=== PATIENT | female | born 1945 | race Caucasian/White ===

== ENCOUNTER 2017-02-12 12:50 | Emergency (ER) | payer MEDICARE, OTHER ==
--- NOTE | 2017-02-12 12:55 | ED Physician Documentation ---
General Adult - HISTORIAN Historian: patient - HPI Stated Complaint: pain in rectal area and urinary frequency Chief Complaint: Female Urogenital Problems Onset: days ago (1) Timing: still present, better Severity: mild Modifying Factors: after supp of preperation H she felt improvement Quality: aching and burning in rectal area Location: rectal Further Comments: no Last known Well Date: 02/11/17 Last Known Well Time: 09:00 Last known Well Code/Unknown Code: Unknown - ROS CONST: denies: fever, recent illness EYES/ENT: none CVS/RESP: none GI/: problems urinating. denies: abdominal pain, vomiting, nausea, diarrhea MS/SKIN/LYMPH: none NEURO/PSYCH: headache - PAST HX Past History: other (history of "two memory loss events" ) Other History: none Surgeries/Procedures: other (right ovary removed ) - SOCIAL HX Smoking History: non-smoker Alcohol Use: none Drug Use: none - FAMILY HX Family History: No - REVIEWED ASSESSMENTS Nursing Assessment Reviewed: Yes Vitals Reviewed: Yes <Rajani Lebron - Last Filed: 02/12/17 13:32> - VITAL SIGNS Vital Signs: Vital Signs Temp Pulse Resp BP Pulse Ox 99.3 F 54 L 20 169/86 99 02/12/17 12:50 02/12/17 13:46 02/12/17 13:46 02/12/17 12:50 02/12/17 13:46 <Dillan Warren - Last Filed: 02/12/17 13:59> - PAST HX Allergies/Adverse Reactions: Allergies Allergy/AdvReac Type Severity Reaction Status Date / Time Sulfa (Sulfonamide Allergy Verified 02/12/17 13:02 Antibiotics) Home Medications: Ambulatory Orders Medication Instructions Recorded NK [NK] 02/12/17 ED Results Lab/Radiology - Orders Orders: ED Orders Category Date Time Status UA W/MICRO IF INDICATED Routine Lab 02/12/17 13:05 Ordered <Dillan Warren - Last Filed: 02/12/17 13:59> General Adult Physical Exam - PHYSICAL EXAM GENERAL APPEARANCE: no distress EENT: eye inspection normal NECK: normal inspection RESPIRATORY: no resp distress, chest non-tender, breath sounds normal CVS: reg rate & rhythm, heart sounds normal, equal pulses, no murmur ABDOMEN: soft, normal bowel sounds, other (no palpated bladder tenderness ). No : guarding RECTAL: normal exam. No: hemorrhoids BACK: normal inspection SKIN: warm/dry EXTREMITIES: non-tender NEURO: oriented X3, CN's nml as tested, motor nml, sensation nml <Rajani Lebron - Last Filed: 02/12/17 13:32> - PHYSICAL EXAM ABDOMEN: other <Dillan Warren - Last Filed: 02/12/17 13:59> Discharge Comments: Check b/p at home and see Dr Warren in one week Decision to Admit: NO Date of Decison to Admit: 02/12/17 Decision Time: 13:32 <Rajani Lebron - Last Filed: 02/12/17 13:32> <Dillan Warren - Last Filed: 02/12/17 13:59> Clincal Impression: Acute hemorrhoid Referrals: Dillan Warren MD [Primary Care Provider] - 2 Days Condition: Stable Disposition: 01 HOME, SELF-CARE
[2017-02-12 13:01] VITALS: BP 169/86
[2017-02-12 14:52] LABS: APPEARANCE,URINE CLEAR (CLEAR); COLOR,URINE YELLOW (YELLOW); OCCULT BLOOD,URINE NEGATIVE (NEGATIVE); UROBILINOGEN URINE 0.2 Eu (0.2-1.0)
== END 2017-02-12 13:46 | disposition home or self-care (01) ==
LOC: ED 12:50
DX: K64.9 Unspecified hemorrhoids (principal)
CPT/HCPCS: 81002; 99283

== ENCOUNTER 2017-02-15 08:14 | Outpatient (CLI) | payer OTHER ==
[2017-02-15 08:54] LABS: eGFR (African) > 60; eGFR (Non-African) > 60
== END 2017-02-15 08:15 ==
LOC: LAB 08:14
PROVIDERS: ATTEND Family Medicine
DX: R07.89 Other chest pain (principal); R53.83 Other fatigue
CPT/HCPCS: 36415; 80053; 80061; 84443

== ENCOUNTER 2017-07-03 19:05 | Emergency (ER) | payer OTHER ==
--- NOTE | 2017-07-03 19:18 | ED Physician Documentation ---
General Adult - HISTORIAN Historian: patient - HPI Stated Complaint: hypertension Chief Complaint: Chest Pain Onset: hours (5) Timing: still present Severity: moderate Further Comments: yes (she states she started with a dizzy feeling and then her b/p and she had this in the past and dr warren told her that her b/p was ok. She also had reflux since she had the flu earlier in the month. She has had weakness since then. She states at this time she has some tightness in her chest. She has not had any OTC meds for the symptoms . She has a mild headache.) - ROS CONST: no problems CVS/RESP: chest pain GI/: none MS/SKIN/LYMPH: none NEURO/PSYCH: headache, dizziness - PAST HX Past History: none Other History: none Surgeries/Procedures: none Immunizations: UTD Allergies/Adverse Reactions: Allergies Allergy/AdvReac Type Severity Reaction Status Date / Time Sulfa (Sulfonamide Allergy Verified 07/03/17 19:23 Antibiotics) Home Medications: Ambulatory Orders Medication Instructions Recorded NK [NK] 02/12/17 - SOCIAL HX Smoking History: non-smoker Alcohol Use: none Drug Use: none - FAMILY HX Family History: No - VITAL SIGNS Vital Signs: Vital Signs Temp Pulse Resp BP Pulse Ox 169/86 02/12/17 12:50 - REVIEWED ASSESSMENTS Nursing Assessment Reviewed: Yes Vitals Reviewed: Yes Progress - Progress Progress: 2020: pain is decreased. No dizziness. DG ED Results Lab/Radiology - Radiology Radiology Impressions: Chest, PA and lateral HISTORY Chest pain. FINDINGS No infiltrate, effusion or pneumothorax is present. Heart size, mediastinum and pulmonary vascularity are normal. IMPRESSION No active disease. Electronically signed on Jul 03, 2017 8:35:34 PM SECURITY COMPLIANCE SPECIALIST by: Willy Rivera General Adult Physical Exam - PHYSICAL EXAM GENERAL APPEARANCE: no distress EENT: eye inspection normal NECK: normal inspection RESPIRATORY: no resp distress, chest non-tender, breath sounds normal CVS: reg rate & rhythm, heart sounds normal, equal pulses, no murmur ABDOMEN: soft SKIN: warm/dry, normal color EXTREMITIES: non-tender, normal range of motion, no evidence of injury, no edema NEURO: oriented X3, CN's nml as tested, motor nml, sensation nml, mood/affect nml, cognition normal Discharge Clincal Impression: Chest pain Qualifiers: Chest pain type: unspecified Qualified Code(s): R07.9 - Chest pain, unspecified Referrals: Dillan Warren MD [Primary Care Provider] - 2 Days Comments: 1. increase fluids 2. rest 3. follow up with PCP in 2-3 days 4. Return to ER for any concerns. 5. Vistaril 25 mg BID as needed for anxiety Condition: Stable Disposition: 01 HOME, SELF-CARE Decision to Admit: NO Date of Decison to Admit: 07/03/17 Decision Time: 20:50
[2017-07-03] MEDS ORDERED: ASPIRIN 81 MG CHEW TAB PO ONE (19:26)
[2017-07-03 19:55] LABS: BASOPHILS % 0.8 (0.0-1.5); MEAN CORPUSCULAR HEMOGLOBIN 30.3 pg (28.0-34.0); MEAN CORPUSCULAR VOLUME 92.7 fl (80.0-100.0); MONOCYTES % 6.1 % (0.0-11.0); NEUTROPHILS # 2.7 # k/uL (1.4-7.7)
[2017-07-03 20:18] LABS: eGFR (African) > 60; eGFR (Non-African) > 60
[2017-07-03] MEDS ORDERED: HYDROXYZINE HCL 25 MG TABLET PO ONE (20:34)
[2017-07-03 21:07] VITALS: BP 134/56
--- NOTE | 2017-07-03 23:57 | Diagnostic Imaging Report ---
ILA BARTON [facility] [address] [facility] [address] [place], [place]. [address] Report Submission Date: Jul 03, 2017 8:35:34 PM CHOIRMASTER Patient Study Name: WAYLON ALVAREZ Date: Jul 03, 2017 8:03:55 PM CHOIRMASTER Modality Type: CR Gender: F Description: CHEST : 43 Institution: [facility] Physician: ILA BARTON Chest, PA and lateral HISTORY Chest pain. FINDINGS No infiltrate, effusion or pneumothorax is present. Heart size, mediastinum and pulmonary vascularity are normal. IMPRESSION No active disease. Electronically signed on Jul 03, 2017 8:35:34 PM CHOIRMASTER by: Willy LA
== END 2017-07-03 21:05 | disposition home or self-care (01) ==
LOC: ED 19:05
DX: R07.9 Chest pain, unspecified (principal); R42 Dizziness and giddiness
CPT/HCPCS: 71046; 80053; 82550; 82553; 84484; 85025; 99283; S1016

== ENCOUNTER 2018-08-09 11:50 | Emergency (ER) | payer OTHER ==
[2018-08-09] MEDS ORDERED: 0.9 % SODIUM CHLORIDE 1,000 ML IV ONE (12:55)
[2018-08-09 13:31] LABS: MEAN CORPUSCULAR HEMOGLOBIN 30.7 pg (28.0-34.0)
[2018-08-09 13:32] LABS: BASOPHILS % 1.3 (0.0-1.5); EOSINOPHILS % 1.6 % (0.0-6.8); MONOCYTES % 4.7 % (0.0-11.0); NEUTROPHILS # 5.9 # k/uL (1.4-7.7)
--- NOTE | 2018-08-09 13:34 | ED Physician Documentation ---
General Adult - HISTORIAN Historian: patient - HPI Stated Complaint: Near Syncope Chief Complaint: General Adult Additional Information: Patient presents to ED with a 3 week history of increasing weakness. Patient states she was diagnosed with hiatal hernia on Saturday via EGD. Her PCP started her on PPI therapy about 3 weeks ago for GERD. She states that when her weakness started. The weakness was exacerbated by a Pneumonia vaccine 2 weeks ago. She has chronic epigastric pain and nausea. She denies chest pain, fever, shortness of breath, dysuria, chills. She reports not eating or drinking much due to epigastric discomfort and nausea. - ROS CONST: no problems EYES/ENT: none CVS/RESP: denies: chest pain, shortness of breath GI/: abdominal pain (epigastric), nausea MS/SKIN/LYMPH: none NEURO/PSYCH: dizziness. denies: headache - PAST HX Past History: none Other History: none Surgeries/Procedures: none Allergies/Adverse Reactions: Allergies Allergy/AdvReac Type Severity Reaction Status Date / Time Sulfa (Sulfonamide Allergy Verified 08/09/18 12:35 Antibiotics) Home Medications: Ambulatory Orders Medication Instructions Recorded Ondansetron HCl Rapdis [Zofran Odt] 4 mg PO Q8 #40 tab 08/09/18 Sucralfate [Carafate] 1 gm PO ACHS #1200 tablet 08/09/18 - SOCIAL HX Smoking History: non-smoker Alcohol Use: none Drug Use: none - FAMILY HX Family History: No - VITAL SIGNS Vital Signs: Vital Signs Temp Pulse Resp BP Pulse Ox 97.9 F 68 16 157/90 99 08/09/18 11:50 08/09/18 11:50 08/09/18 11:50 08/09/18 11:50 08/09/18 11:50 Progress - EKG/XRAY/CT EKG: NSR Comments: 60 bpm ED Results Lab/Radiology - Radiology Radiology Impressions: Report Submission Date: Aug 09, 2018 1:42:01 PM CDT Patient Study Name: WAYLON ALVAREZ Date: Aug 09, 2018 1:10:58 PM CDT Modality Type: CT\SR Gender: F Description: CT ABD PELVIS W/O CO : 43 Institution: [facility] Physician: VIOLET FREEDMAN CT abdomen and pelvis without contrast Clinical history: Epigastric abdominal pain Radiation dose DLP 221 No focal hepatic or splenic pathology. Normal pancreas and adrenal gland. Kidneys are normal. Calcification of the abdominal aorta without aneurysm. No bowel obstruction. Normal appendix. No gastric dilatation. Moderate diverticulosis of the sigmoid colon. 3 cm left adnexal cyst . Normal bladder. Moderate lumbar spondylosis with degenerative disc at the L5/S1. No pelvic or spine fractures. Impression: 3 cm left adnexal cyst. Degenerative disc at L5/S1 No bowel obstruction, no free fluid or free air in the Abdomen/pelvis Normal appendix Moderate diverticulosis of sigmoid colon Electronically signed on Aug 09, 2018 1:42:01 PM CDT by: Dillan Pena - Orders Orders: ED Orders Category Date Time Status Orthostatics 1T Care 08/09/18 12:[address] IV Lock 1T Care 08/09/18 12:[address] ABD & PELVIS W/O CON Stat Exams 08/09/18 Taken CBC/PLATELET/DIFF Routine Lab 08/09/18 13:25 Received CMP Routine Lab 08/09/18 13:25 Received 0.9 % Sodium Chloride [Normal Saline] 1,000 ml Med 08/09/18 12:55 Active IV Q1H EKG WITH COMPARISON Stat Ther 08/09/18 Ordered General Adult Physical Exam - PHYSICAL EXAM GENERAL APPEARANCE: no distress EENT: JANI NECK: normal inspection, supple RESPIRATORY: no resp distress, chest non-tender, breath sounds normal CVS: reg rate & rhythm, heart sounds normal ABDOMEN: soft. No: tenderness BACK: no CVA tenderness SKIN: warm/dry EXTREMITIES: non-tender, no edema NEURO: oriented X3, motor nml, mood/affect nml Discharge Clincal Impression: Dehydration Prescriptions: Ondansetron HCl Rapdis [Zofran Odt] 4 mg PO Q8 #40 tab Sucralfate [Carafate] 1 gm PO ACHS #1200 tablet Referrals: Dillan Warren MD [Primary Care Provider] - 2 Days Additional Instructions: 1. Take Carafated wih meals and at bedtime 2. Zofran as needed for nausea 3. Drink small sips of water all day long 4. Drink small sips of protein/meal replacement shakes all day long 5. Follow up with PCP within 1 week, surgery consult could be beneficial 6. Return to ER for new or worsening symptoms. Condition: Stable Disposition: 01 HOME, SELF-CARE Decision to Admit: NO Date of Decison to Admit: 08/09/18 Decision Time: 13:58
[2018-08-09 13:42] LABS: eGFR (Non-African) > 60
[2018-08-09 13:43] LABS: APPEARANCE,URINE CLEAR (CLEAR); COLOR,URINE YELLOW (YELLOW); OCCULT BLOOD,URINE NEGATIVE (NEGATIVE); PH URINE 5.5 (5.0 - 8.0); UROBILINOGEN URINE 0.2 Eu (0.2-1.0)
--- NOTE | 2018-08-09 13:48 | Diagnostic Imaging Report ---
VIOLET FREEDMAN [facility] [address] [facility] [address] [place], [place]. [address] Report Submission Date: Aug 09, 2018 1:42:01 PM CDT Patient Study Name: WAYLON ALVAREZ Date: Aug 09, 2018 1:10:58 PM CDT Modality Type: CT\SR Gender: F Description: CT ABD PELVIS W/O CO : 43 Institution: [facility] Physician: VIOLET FREEDMAN CT abdomen and pelvis without contrast Clinical history: Epigastric abdominal pain Radiation dose DLP 221 No focal hepatic or splenic pathology. Normal pancreas and adrenal gland. Kidneys are normal. Calcification of the abdominal aorta without aneurysm. No bowel obstruction. Normal appendix. No gastric dilatation. Moderate diverticulosis of the sigmoid colon. 3 cm left adnexal cyst . Normal bladder. Moderate lumbar spondylosis with degenerative disc at the L5/S1. No pelvic or spine fractures. Impression: 3 cm left adnexal cyst. Degenerative disc at L5/S1 No bowel obstruction, no free fluid or free air in the Abdomen/pelvis Normal appendix Moderate diverticulosis of sigmoid colon Electronically signed on Aug 09, 2018 1:42:01 PM CDT by: Dillan LA
[2018-08-09 15:02] VITALS: BP 170/78
== END 2018-08-09 14:58 | disposition home or self-care (01) ==
LOC: ED 11:50
DX: E86.0 Dehydration (principal)
CPT/HCPCS: 36415; 74176; 80053; 81002; 85025; 93005; 96360; 99283; 99284; J7030; S1016

== ENCOUNTER 2018-08-16 16:32 | Emergency (ER) | payer OTHER ==
[2018-08-16] MEDS ORDERED: LORazepam 1 MG TABLET PO ONE (16:53)
[2018-08-16 17:06] VITALS: BP 192/94
[2018-08-16 17:13] LABS: BASOPHILS % 1.4 (0.0-1.5); EOSINOPHILS % 1.2 % (0.0-6.8); MEAN CORPUSCULAR HEMOGLOBIN 30.5 pg (28.0-34.0); MONOCYTES % 4.6 % (0.0-11.0)
[2018-08-16 17:21] LABS: eGFR (Non-African) > 60
[2018-08-16] MEDS ORDERED: LORazepam 2 MG/ML VIAL IV ONE (18:05)
--- NOTE | 2018-08-16 18:19 | ED Physician Documentation ---
General Adult - HISTORIAN Historian: patient, spouse - HPI Stated Complaint: Weakness Chief Complaint: General Adult Onset: hours Timing: still present Severity: moderate Further Comments: yes (Pt is a 72 yo female with c/o weakness and tinging all over. Pt was seen here 08/09/18 with similar presentation and had a full work up. Pt has hx hiatal hernia and gerd, for which she is rx'd prilosec. Pt appears very anxious on presentation and appears to be hyperventilating. Pt reports lapses in memory, but may be inattentive with her anxiety.) - ROS CONST: weakness EYES/ENT: none CVS/RESP: chest pain, shortness of breath GI/: abdominal pain MS/SKIN/LYMPH: none NEURO/PSYCH: anxiety (severe) - PAST HX Past History: other (hiatal hernia, GERD) Allergies/Adverse Reactions: Allergies Allergy/AdvReac Type Severity Reaction Status Date / Time Sulfa (Sulfonamide Allergy Verified 08/16/18 16:43 Antibiotics) Home Medications: Ambulatory Orders Medication Instructions Recorded Ondansetron HCl Rapdis [Zofran Odt] 4 mg PO Q8 #40 tab 08/09/18 Sucralfate [Carafate] 1 gm PO ACHS #1200 tablet 08/09/18 - SOCIAL HX Smoking History: non-smoker - FAMILY HX Family History: No - VITAL SIGNS Vital Signs: Vital Signs Temp Pulse Resp BP Pulse Ox 97.6 F 80 41 H 192/94 99 08/16/18 16:50 08/16/18 16:50 08/16/18 16:50 08/16/18 16:50 08/16/18 16:50 - REVIEWED ASSESSMENTS Nursing Assessment Reviewed: Yes Vitals Reviewed: Yes Progress - Progress Progress: Ativan 1 mg po anxiety improved KCL 20 mEq po - EKG/XRAY/CT EKG: NSR (HR=68; short [place] interval.) XRAY: chest (neg) ED Results Lab/Radiology - Lab Results Lab Results: Lab Results 08/16/18 08/16/18 08/16/18 17:00 17:00 17:00 WBC 10.00 K/ul K/ul (4.00-12.00) RBC 4.99 M/ul M/ul (3.90-5.20) Hgb 15.2 g/dL g/dL (12.0-16.0) Hct 45.7 % % (34.5-46.5) MCV 92.0 fl fl (80.0-100.0) MCH 30.5 pg pg (28.0-34.0) MCHC 33.3 g/dL g/dL (30.0-36.0) RDW 13.7 % % (11.3-14.3) Plt Count 269 K/mm3 K/mm3 (130-400) Neut % (Auto) 60.1 % % (39.0-79.0) Lymph % (Auto) 32.7 % % (16.0-50.0) Crook % (Auto) 4.6 % % (0.0-11.0) Eos % (Auto) 1.2 % % (0.0-6.8) Baso % (Auto) 1.4 (0.0-1.5) Neut # (Auto) 6.0 # k/uL # k/uL (1.4-7.7) Lymph # (Auto) 3.3 # k/uL # k/uL (0.6-4.0) Crook # (Auto) 0.5 # k/uL # k/uL (0.0-0.9) Eos # (Auto) 0.1 # k/uL # k/uL (0.0-0.6) Baso # (Auto) 0.1 # k/uL # k/uL (0.0-0.5) Sodium 140 mmol/L mmol/L (136-145) Potassium 3.2 mmol/L L mmol/L (3.5-5.1) Chloride 104 mmol/L mmol/L (98-107) Carbon Dioxide 20 mmol/L L mmol/L (22-30) BUN 15 mg/dL mg/dL (7-17) Creatinine 0.72 mg/dL mg/dL (0.52-1.04) Estimated Creat Clear 57 Est GFR ( Amer) > 60 (60 - ) Est GFR (Non-Af Amer) > 60 (60 - ) Glucose 108 mg/dL H mg/dL (74-106) Calcium 9.8 mg/dL mg/dL (8.4-10.2) Total Bilirubin 0.2 mg/dL mg/dL (0.2-1.3) AST 32 U/L U/L (15-46) ALT 22 U/L U/L (13-69) Alkaline Phosphatase 57 U/L U/L (38-126) Creatine Kinase 63 U/L U/L (30-135) Total Protein 7.1 g/dL g/dL (6.3-8.2) Albumin 4.7 g/dL g/dL (3.5-5.0) - Orders Orders: ED Orders Category Date Time Status Continuous EKG monitoring Q30M Care 08/16/18 18:04 Active Continuous Pulse Oximetry Q30M Care 08/16/18 18:[address] IV Lock 1T Care 08/16/18 16:52 Active CHEST 1VIEW [RAD] Stat Exams 08/16/18 Ordered CBC/PLATELET/DIFF Routine Lab 08/16/18 17:00 Completed CKMB Stat Lab 08/16/18 17:00 Received CMP [CMP] Routine Lab 08/16/18 17:00 Completed CREATINE KINASE Routine Lab 08/16/18 17:00 Completed TROPONIN I (cTnI) Stat Lab 08/16/18 17:00 Received UA [URINALYSIS] Routine Lab 08/16/18 Ordered LORazepam [Ativan] Med 08/16/18 18:05 Discontinued 1 mg IV NOW ONE LORazepam [Ativan] Med 08/16/18 16:53 Discontinued 1 mg PO NOW ONE EKG WITH COMPARISON Stat Ther 08/16/18 18:04 Ordered General Adult Physical Exam - PHYSICAL EXAM GENERAL APPEARANCE: thin body habitus, very anxious EENT: eye inspection normal, pharynx normal NECK: normal inspection, supple RESPIRATORY: breath sounds normal, other (rapid rate (hyperventilating)) ABDOMEN: soft, no organomegaly, normal bowel sounds BACK: normal inspection, no CVA tenderness SKIN: warm/dry, normal color EXTREMITIES: non-tender, normal range of motion, no evidence of injury NEURO: oriented X3, motor nml, sensation nml, other (anxious affect) Discharge Clincal Impression: Anxiety Referrals: Dillan Warren MD [Primary Care Provider] - Condition: Stable Disposition: 01 HOME, SELF-CARE Decision to Admit: NO Decision Time: 19:37
[2018-08-16] MEDS ORDERED: POTASSIUM CHLORIDE 20 MEQ TABLET.ER ONE (18:25)
--- NOTE | 2018-08-17 04:59 | Diagnostic Imaging Report ---
CURT MONTOYA [facility] [address] [facility] [address] [place] [address]. [id number] Report Submission Date: Aug 16, 2018 7:11:40 PM CDT Patient Study Name: WAYLON ALVAREZ Date: Aug 16, 2018 6:34:51 PM CDT Modality Type: DX Gender: F Description: : 43 Institution: [facility] Physician: CURT MONTOYA Chest, AP portable History: Shortness of breath Findings: No infiltrate, effusion or pneumothorax is present. Heart size, mediastinum and pulmonary vascularity are normal. Impression: No active pulmonary disease. Electronically signed on Aug 16, 2018 7:11:40 PM CDT by: Willy LA
[2018-08-17 09:01] LABS: APPEARANCE,URINE CLEAR (CLEAR); COLOR,URINE YELLOW (YELLOW)
[2018-08-17 09:02] LABS: OCCULT BLOOD,URINE NEGATIVE (NEGATIVE); PH URINE 7.5 (5.0 - 8.0); UROBILINOGEN URINE 0.2 Eu (0.2-1.0)
== END 2018-08-16 19:50 | disposition home or self-care (01) ==
LOC: ED 16:32
DX: F41.9 Anxiety disorder, unspecified (principal)
CPT/HCPCS: 36415; 71045; 80053; 81002; 82550; 82553; 84484; 85025; 93005; 99283; 99284; A9270; S1016

== ENCOUNTER 2018-09-11 14:37 | Outpatient (CLI) | payer OTHER | END 2018-09-11 14:40 | LOC: LAB 14:37 | PROVIDERS: ATTEND Family Medicine | DX: R53.82 Chronic fatigue, unspecified (principal); E55.9 Vitamin D deficiency, unspecified | CPT/HCPCS: 36415; 82306; 84439; 84443; 84481 ==

== ENCOUNTER 2018-10-10 14:46 | Outpatient (CLI) | payer OTHER ==
[2018-10-10 15:21] LABS: eGFR (Non-African) > 60
== END 2018-10-10 14:48 ==
LOC: LAB 14:46
PROVIDERS: ATTEND Family Medicine
DX: I10 Essential (primary) hypertension (principal)
CPT/HCPCS: 36415; 80048

== ENCOUNTER 2019-02-02 13:37 | Outpatient (CLI) | payer OTHER ==
[2019-02-02 14:05] LABS: BASOPHILS % 0.4 % (0.0-1.5); NEUTROPHILS # 4.2 # k/uL (1.4-7.7)
[2019-02-02 14:33] LABS: eGFR (Non-African) > 60
== END 2019-02-02 13:40 ==
LOC: LAB 13:37
PROVIDERS: ATTEND Family Medicine
DX: J02.9 Acute pharyngitis, unspecified (principal); R05 Cough; E55.9 Vitamin D deficiency, unspecified
CPT/HCPCS: 36415; 80053; 82306; 85025